=== PATIENT | female | born 1980 | race Caucasian/White ===

== ENCOUNTER 2022-08-07 16:37 | Emergency (ER) | payer OTHER ==
[~2022-08-07] VITALS: Ht 157.5 cm; Wt 79.0 kg
[2022-08-07] MEDS ORDERED: LORAZEPAM 2MG/ML CPJ IV ONE ×2 (17:00→18:30)
[2022-08-07] MEDS ORDERED: VISCOUS LIDOCAINE 2% 15 ML UDC MM ONE (17:00)
[2022-08-07] MEDS ORDERED: MAGNESIUM/ALUMINUM HYDROXIDE/SIMETHICONE 30ML UDC PO ONE (17:00)
[2022-08-07] MEDS ORDERED: SODIUM CHLORIDE 0.9% 1,000 ML IV ONE (17:00)
[2022-08-07] MEDS ORDERED: ONDANSETRON HCL 4MG/2ML INJ IV ONE (17:00)
[2022-08-07 17:38] LABS: BASOPHILS % 0.7 % (0.0-2.0); HEMATOCRIT. 41.2 % (36.0-48.0); HEMOGLOBIN. 14.4 g/dL (12.0-16.0); LYMPHOCYTES % 11.4 % (20.0-50.0); MEAN CORPUSCULAR HEMOGLOBIN 31.6 pg (28.0-32.0); MEAN CORPUSCULAR VOLUME 90.3 fL (81.0-99.0); MEAN PLATELET VOLUME 6.3 fl (7.4-10.4); MONOCYTES % 6.2 % (2.0-8.0); NEUTROPHILS % 81.7 % (40.0-76.0); PLATELET 176 x1000/uL (130-400); RED BLOOD CELL COUNT 4.57 mill/uL (4.2-5.4)
[2022-08-07 17:44] LABS: CHLORIDE 97 mEq/L (98-107)
[2022-08-07 17:53] LABS: ETHANOL BLOOD 38 mg/dL
[2022-08-07 17:59] LABS: HCG SCREEN NEGATIVE
[2022-08-07] MEDS ORDERED: L10 MT ×2 (18:30→18:32)
[2022-08-07] MEDS ORDERED: ONDA4TAB50 MT (18:30)
[2022-08-07] MEDS ORDERED: MAG355OR21 MT (18:30)
[2022-08-07] MEDS ORDERED: GABAPENTIN 100MG CAPSULE PO ONE (18:30)
[2022-08-07] MEDS ORDERED: PROT40 MT (18:30)
[2022-08-07 19:25] VITALS: BP 132/79
== END 2022-08-07 19:58 | disposition home or self-care (01) ==
LOC: ER 16:37
DX: F10.20 Alcohol dependence, uncomplicated (principal); E87.20 Acidosis, unspecified; Z13.9 Encounter for screening, unspecified; Y90.1 Blood alcohol level of 20-39 mg/100 ml
CPT/HCPCS: 36415; 80053; 80307; 80320; 80329; 82140; 83690; 84703; 85025; 96361; 96374; 96375; 99284; J2060; J2405; J7030; Z7610; G0480